=== PATIENT | male | born 1945 | race Two or more races ===

== ENCOUNTER → 2018-11-18 | Outpatient (CLI) | payer OTHER ==
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
--- NOTE | 2018-11-21 10:03 | RADRPT ---
PROCEDURE: XR knees CLINICAL INDICATION: Knee pain. TECHNIQUE: Three views of the bilateral knees were obtained. COMPARISON: None. FINDINGS: Right knee: There is no acute fracture dislocation. There postsurgical changes of total right knee a rthroplasty. Hardware appears intact. There is old deformity of the fibular neck. There is a small kn ee joint effusion. Left knee: There is no acute fracture dislocation. Osseous structures are intact. There are mild to moderate tricompartmental osteoarthritic changes of the knee, most notable at the medial tibio-femora l compartment. There is no knee joint effusion. IMPRESSION: 1. Postsurgical changes of total right knee arthroplasty without evidence of complication. 2. Mild to moderate left knee osteoarthritis, most notable at the medial tibio-femoral compartment. 3. Small right knee joint effusion. RPTAT:AAEE Physician Kavon Date Time Electronically viewed and signed by Physician Kavon on 11/21/2018 10:03 ELLY/
--- NOTE | 2018-11-22 11:33 | RADRPT ---
PROCEDURE: Bone length study CLINICAL INDICATION: Pain TECHNIQUE: Single composite frontal view of the lower extremities was submitted for review. The tib iotalar joints are not in full field of view. Study is submitted with ruler COMPARISON: Radiographs of the knees 11/18/2018 FINDINGS: Measuring from the top of the right femoral head to the right mid line tibial plafond, the mechanical axis lies at the lateral tibial tray compatible with genu valgus, measuring 105 cm using uncalibrate d line, and 97.5 cm. Measuring from the top of the left femoral head to the mid line tibial plafond, the mechanical axis l ies just medial to the medial tibial plafond and measures 108 cm with uncalibrated line, and using ru ler, measures approximately 100 cm. The pelvis is mildly tilted superiorly on the left. No displaced fracture identified. Right pubic symphysis, sacrum and visualized lower lumbar spine are obscured by overlying ruler and bowel gas. Marginal osteophyte formation in the bilateral hips witho ut significant cartilage space narrowing. Status post total right knee arthroplasty. Lucency about th e lateral tibial tray. Mild medial tibio-femoral compartment cartilage space narrowing of the left kn ee. Focal irregularity of the mid right tibia may be post-traumatic or surgical. IMPRESSION: 1. Leg length and mechanical axes as above. 2. Total right knee arthroplasty. 3. Degenerative changes as above. RPTAT: BBDD Physician Amalia Date Time Electronically viewed and signed by Physician Amalia on 11/22/2018 11:32 LYDIA/
== END | disposition home or self-care (01) ==
LOC: HKI 15:30
PROVIDERS: ATTEND Orthopaedic Surgery Adult Reconstructive Orthopaedic Surgery
DX: M25.561 Pain in right knee (principal); Z96.651 Presence of right artificial knee joint
CPT/HCPCS: 73562; 77073; Z7500; G0463

== ENCOUNTER → 2018-12-25 | Outpatient (CLI) | payer OTHER ==
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
== END | disposition home or self-care (01) ==
LOC: HKI 09:42
PROVIDERS: ATTEND Orthopaedic Surgery Adult Reconstructive Orthopaedic Surgery
DX: M25.561 Pain in right knee (principal); R22.41 Localized swelling, mass and lump, right lower limb
CPT/HCPCS: 20610; Z7500; Z7610; G0463

== ENCOUNTER 2019-02-18 05:26 | Inpatient (IN) | payer OTHER ==
[2019-02-18] VITALS (29 sets, daily range): BP systolic 71–130; BP diastolic 50–81; PULSE 65–104; RESP 13–18; Ht 172.7 cm; Wt 89.4 kg
[~2019-02-18] VITALS: Ht 172.7 cm; Wt 89.4 kg
[2019-02-18] MEDS: LACTATED RINGER'S 1,000 ML IV SCH ×4 (06:31→23:00)
[2019-02-18] MEDS ORDERED: ASPI81TA52 PO (06:59)
[2019-02-18] MEDS ORDERED: OXYC5CAP17 PO (06:59)
[2019-02-18] MEDS ORDERED: GABAPENTIN 300 MG CAP PO SCH (07:00)
[2019-02-18] MEDS ORDERED: CELECOXIB 200 MG CAP PO ONE (07:00)
[2019-02-18] MEDS ORDERED: ACETAMINOPHEN 1000MG/100ML IV 100 ML IVPB ONE (07:00)
[2019-02-18] MEDS ORDERED: CEFAZOLIN 2 GM/50 ML (PMX) 50 ML IVPB ONE (07:00)
[2019-02-18] MEDS ORDERED: METO10TA92 PO (07:00)
[2019-02-18] MEDS ORDERED: TRANEXAMIC ACID 1GM/100ML(PMX) 100 ML PRE-OP IVPB ONE (07:00)
[2019-02-18] MEDS ORDERED: LANSOPRAZOLE 30 MG CAP PO ONE (07:00)
[2019-02-18] MEDS ORDERED: GABA300C16 PO (07:00)
[2019-02-18] MEDS ORDERED: ONDANSETRON 4 MG INJ IV ONE (07:00)
[2019-02-18] MEDS ORDERED: TAMS-14 PO (07:01)
[2019-02-18] MEDS ORDERED: OMEP20CA16 PO (07:01)
[2019-02-18] MEDS ORDERED: OXYB5TAB7 PO (07:02)
--- NOTE | 2019-02-18 07:09 | HPN ---
Date/Time of Note Date/Time of Note DATE: 02/18/19 TIME: 07:08 Interval H&P Admission Note Pt. seen H&P reviewed: No system changes Patient denies fever, chills, shortness of breath, chest pain, nausea/vomiting, constipation, diarrhea, numbness, and tingling. MUSCULOSKELETAL: Right lower extremity Skin intact Sensation intact to light touch in a sural, saphenous, deep peroneal, superficial peroneal, medial and lateral plantar nerve distribution. Motor is intact, patient able to dorsiflex and plantarflex ankle and extend and flex great toe. Dorsalis Pedis pulse +2, Brisk capillary refill. Compartments are soft. Calves non-tender to palpation bilaterally. DULCE MARIA STROUD MD Feb 18, 2019 07:08
--- NOTE | 2019-02-18 07:16 | PREAC ---
Date/Time of Note Date/Time of Note DATE: 02/18/19 TIME: 07:14 Anesthesia Eval and Record Evaluation Time Pre-Procedure Interview DATE: 02/18/19 TIME: 07:14 Age 73 Sex male NPO: 8 hrs Preoperative diagnosis aseptic loosening right total knee arthroplasty Planned procedure revision right total knee arthroplasty Past Medical History Past Medical History: Includes Endo: Diabetes (preDSM) Renal: BPH GI: GERD, Obesity Surgery & Anesthesia Issues No known issue Meds Anticoagulation: No Beta Clive within 24 hr: No Reason Beta Clive not given: Pt. not on B-Clive Reported Medications Oxybutynin Chloride* (Ditropan*) 5 Mg Tab, 5 MG PO BID, TAB 02/18/19 Omeprazole* (Omeprazole*) 20 Mg Capsule.dr, 20 MG PO DAILY, #30 CAP 02/18/19 Tamsulosin Hcl* (Flomax*) 0.4 Mg Cap.er.24h, 0.4 MG PO DAILY, CAP 02/18/19 Metoclopramide* (Reglan*) 10 Mg Tablet, 10 MG PO AC MEALS, TAB 02/18/19 Gabapentin* (Gabapentin*) 300 Mg Capsule, 300 MG PO QHS, #60 CAP 02/18/19 Aspirin (Low Dose Aspirin) 81 Mg Tablet.dr, 81 MG PO BID, #30 TAB 02/18/19 Oxycodone Hcl* (IR) (Oxycodone Hcl*) 5 Mg Capsule, 5-10 MG PO Q6 PRN for PAIN, CAP 02/18/19 Current Medications Lactated Ringer's 1,000 ml @ 125 mls/hr Q8H IV Last administered on 02/18/19at 06:31; Admin Dose 125 MLS/HR; Start 02/18/19 at 07:00; Stop 02/18/19 at 23:59 Cefazolin Sodium/ Dextrose 50 ml @ 100 mls/hr PRE-OP ONCE IVPB ; Start 02/18/19 at 07:00; Stop 02/18/19 at 07:29 Tranexamic Acid 100 ml @ 200 mls/hr PRE-OP ONCE IVPB ; Start 02/18/19 at 07:00; Stop 02/18/19 at 07:29 Tranexamic Acid 100 ml @ 200 mls/hr AT CLOSING ONCE IVPB ; Start 02/18/19 at 07:00; Stop 02/18/19 at 07:29 Gabapentin (Neurontin) 300 mg ONCE PO Last administered on 02/18/19at 06:33; Admin Dose 300 MG; Start 02/18/19 at 07:00; Stop 02/18/19 at 23:59 Ropivacaine/ Clonidine/ Epinephrine/ Ketorolac Tromethamine/ Sodium Chloride INTRA-OP INJ ; Start 02/18/19 at 07:00; Stop 02/21/19 at 06:59 Meds reviewed: Yes Allergies Coded Allergies: No Known Allergy (Unverified , 02/17/19) Allergies Reviewed: Yes Labs/Studies Labs Reviewed: Reviewed by anesthesiologist Blood Bank Test 02/18/19 05:44 02/18/19 06:17 Blood Product Summary Counts Blood Type O POSITIVE test: N/A Studies: ECG (nl), CXR (mild copd) Pre-procedure Exam Last vitals Vital Signs Date Temp Pulse Resp B/P (MAP) Pulse Ox O2 O2 Flow FiO2 Time Delivery Rate 02/18/19 97.3 65 18 130/81 97 Room Air 06:44 (97) Airway: Adequate mouth opening, Adequate thyromental dist Mallampati: Mallampati II Teeth: Normal Lung: Normal Heart: Normal ASA Physical Status ASA physical status: 2 Emergency: None Planned Anesthetic General/MAC: ETT Neuraxial: Spinal Nerve block: Femoral (right) Planned Pain Management Sub-arachniod narcotics, Single shot nerve block, Parenteral pain med Pre-operative Attestations Prior to commencing anesthesia and surgery, the patient was re-evaluated, there was verification of: *The patient's identity *The results of appropriate recent lab work and preoperative vital signs *The above evaluation not changing prior to induction *Anesthetic plan, risk benefits, alternative and complications discussed with patient/family; questions answered; patient/family understands, accepts and wishes to proceed. Cayetano Cleveland M.D. Feb 18, 2019 07:16
[2019-02-18] MEDS ORDERED: TRANEXAMIC ACID 1GM/100ML(PMX) 200 ML ONE (07:20)
[2019-02-18] MEDS ORDERED: CEFAZOLIN 1 GM INJ ONE ×2 (07:30→07:34)
[2019-02-18] MEDS ORDERED: EPHEDrine 25 MG/5 ML SYG ONE (07:30)
[2019-02-18] MEDS ORDERED: SEVOFLURANE 15 MIN ONE (07:30)
[2019-02-18] MEDS ORDERED: ONDANSETRON 4 MG INJ ONE (07:34)
[2019-02-18] MEDS ORDERED: MIDAZOLAM 1 MG/ML 2 ML INJ ONE (07:34)
[2019-02-18] MEDS ORDERED: GLYCOPYRROLATE 0.4 MG INJ ONE (07:34)
[2019-02-18] MEDS ORDERED: DEXAMETHASONE 4 MG/ML 5 ML INJ ONE (07:34)
[2019-02-18] MEDS ORDERED: PROPOFOL 20 ML ONE (07:34)
[2019-02-18] MEDS ORDERED: NEOSTIGMINE 3 MG/3 ML SYRINGE ONE (07:34)
[2019-02-18] MEDS ORDERED: FENTAnyl 50 MCG/ML VIAL ONE (07:34)
[2019-02-18] MEDS ORDERED: ROCURONIUM 50 MG INJ ONE (07:34)
[2019-02-18] MEDS ORDERED: morphine SULFATE/PF (10 MG/10 ML) INJ ONE (07:36)
[2019-02-18] MEDS ORDERED: MIDAZOLAM 1 MG/ML 2 ML INJ IV PRN (08:30)
[2019-02-18] MEDS ORDERED: ONDANSETRON 4 MG INJ IV PRN ×2 (08:30)
[2019-02-18] MEDS ORDERED: OXYCODONE/ACETAMINOPHEN (5/325) TAB PO PRN ×2 (08:30)
[2019-02-18] MEDS ORDERED: HYDROmorphONE 1 MG/5 ML IV SYRINGE IV PRN ×3 (08:30)
[2019-02-18] MEDS ORDERED: NALBUPHINE HCL (10 MG/1 ML) INJ IV PRN (08:30)
[2019-02-18] MEDS ORDERED: MEPERIDINE 25 MG INJ IV PRN (08:30)
[2019-02-18] MEDS ORDERED: LABETALOL HCL 20MG INJ IV PRN (08:30)
[2019-02-18] MEDS ORDERED: EPHEDrine 25 MG/5 ML SYG IV PRN (08:30)
[2019-02-18] MEDS ORDERED: HYDROmorphONE 0.5 MG/0.5 ML SYG IV PRN ×2 (08:30)
[2019-02-18] MEDS ORDERED: FENTAnyl 50 MCG/ML VIAL IV PRN ×3 (08:30)
[2019-02-18] MEDS ORDERED: ALBUTEROL 0.083% (NEB) 2.5 MG/3 ML AMP HHN PRN (08:30)
[2019-02-18] MEDS ORDERED: hydrALAzine 20 MG INJ IV PRN (08:30)
[2019-02-18] MEDS ORDERED: DIPHENHYDRAMINE 50 MG INJ IV PRN ×3 (08:30→17:00)
[2019-02-18] MEDS ORDERED: TRIMETHOBENZAMIDE 100 MG/ML VIAL IM PRN ×2 (08:30)
[2019-02-18] MEDS ORDERED: NALOXONE (0.4 MG/ML) INJ IV PRN ×2 (08:30→17:00)
[2019-02-18] MEDS ORDERED: IPRATROPIUM (NEB) 0.5 MG/2.5 ML AMP HHN PRN (08:30)
[2019-02-18] MEDS ORDERED: TOBRAMYCIN 1.2 GM POWDER ZFS ONE (09:33)
[2019-02-18] MEDS ORDERED: VANCOMYCIN 1 GM INJ IVPB ONE ×2 (09:33)
[2019-02-18] MEDS ORDERED: ROPIVACAINE 0.5 % 30 ML VIAL ONE (12:05)
[2019-02-18] MEDS: TRANEXAMIC ACID 1GM/100ML(PMX) 100 ML AT CLOSING IVPB ONE ×2 (16:02)
--- NOTE | 2019-02-18 16:30 | PAC ---
Date/Time of Note Date/Time of Note DATE: 02/18/19 TIME: 16:30 Post-Anesthesia Notes Post-Anesthesia Note Last documented vital signs Vital Signs Date Temp Pulse Resp B/P (MAP) Pulse Ox O2 O2 Flow FiO2 Time Delivery Rate 02/18/19 97.3 65 18 130/81 97 Room Air 06:44 (97) Activity: WNL Respiratory function: WNL Cardiovascular function: WNL Mental status: Baseline Pain reasonably controlled: Yes Hydration appropriate: Yes Nausea/Vomiting absent: Yes Cayetano Cleveland M.D. Feb 18, 2019 16:30
[2019-02-18] MEDS ORDERED: DOCUSATE SODIUM 100 MG CAP PO ONE (17:00)
[2019-02-18] MEDS ORDERED: SENNA/DOCUSATE NA (8.6MG/50MG) TAB PO PRN (17:00)
[2019-02-18] MEDS ORDERED: BISACODYL 10 MG SUPP PR PRN (17:00)
[2019-02-18] MEDS ORDERED: HYDROmorphONE 1 MG/ML SYG IV PRN (17:00)
[2019-02-18] MEDS ORDERED: BETHANECHOL 25 MG TAB PO PRN (17:00)
[2019-02-18] MEDS ORDERED: NA PHOSPHATE/BIPHOS 133 ML ENEMA PR PRN (17:00)
[2019-02-18] MEDS ORDERED: MAGNESIUM HYDROXIDE 30ML CUP PO PRN (17:00)
[2019-02-18] MEDS ORDERED: NACL 0.9% 3 ML SYG IV SCH (17:00)
[2019-02-18] MEDS ORDERED: oxyCODONE 5 MG TAB PO PRN ×2 (17:00)
[2019-02-18] MEDS: CEFAZOLIN 2 GM/50 ML (PMX) 50 ML IVPB SCH (17:59)
--- NOTE | 2019-02-18 18:26 | CONS ---
Assessment/Plan Assessment/Plan Hospital Course (Demo Recall) Assessment and plan: 73-year-old male past because of BPH, GERD, prediabetes, who was brought in for a right total knee revision. #Status post right total knee revision: Again possible patellar tear, location during the operation which was repaired as well. -Continue postoperative care per primary orthopedic surgery team including pain control medications, fluids, labs, physical therapy # BPH: No present issues, monitor for now # GERD: Continue PPI # pre DM -monitor sugars, consider checking A1c We will continue to follow along with you. Consultation Date/Type/Reason Admit Date/Time Feb 18, 2019 at 05:26 Date/Time of Note DATE: 02/18/19 TIME: 18:26 Hx of Present Illness 73-year-old male past because of BPH, GERD, prediabetes, who was brought in for a right total knee revision. Apparently there was a possible patellar tendon laceration during the surgical operation which required repair as well. Patient presently is in recovery, denies any upper or lower GI bleeding, nausea vomiting, fever chills, chest pain, shortness of breath, diarrhea, constipation. Past Medical History Home Meds Reported Medications Oxybutynin Chloride* (Ditropan*) 5 Mg Tab, 5 MG PO BID, TAB 02/18/19 Omeprazole* (Omeprazole*) 20 Mg Capsule.dr, 20 MG PO DAILY, #30 CAP 02/18/19 Tamsulosin Hcl* (Flomax*) 0.4 Mg Cap.er.24h, 0.4 MG PO DAILY, CAP 02/18/19 Metoclopramide* (Reglan*) 10 Mg Tablet, 10 MG PO AC MEALS, TAB 02/18/19 Gabapentin* (Gabapentin*) 300 Mg Capsule, 300 MG PO QHS, #60 CAP 02/18/19 Aspirin (Low Dose Aspirin) 81 Mg Tablet.dr, 81 MG PO BID, #30 TAB 02/18/19 Oxycodone Hcl* (IR) (Oxycodone Hcl*) 5 Mg Capsule, 5-10 MG PO Q6 PRN for PAIN, CAP 02/18/19 Medications Current Medications Lactated Ringer's 1,000 ml @ 125 mls/hr Q8H IV Last administered on 02/18/19at 06:31; Admin Dose 125 MLS/HR; Start 02/18/19 at 07:00; Stop 02/18/19 at 23:59 Gabapentin (Neurontin) 300 mg ONCE PO Last administered on 02/18/19at 06:33; Admin Dose 300 MG; Start 02/18/19 at 07:00; Stop 02/18/19 at 23:59 Ropivacaine/ Clonidine/ Epinephrine/ Ketorolac Tromethamine/ Sodium Chloride INTRA-OP INJ Last administered on 02/18/19at 09:33; Admin Dose 112.3 ML; Start 02/18/19 at 07:00; Stop 02/21/19 at 06:59 Hydromorphone HCl (Dilaudid) 0.2 mg Q2H PRN IV .PAIN 1-5; Start 02/18/19 at 08:30; Stop 02/19/19 at 07:42 Hydromorphone HCl (Dilaudid) 0.4 mg Q2H PRN IV .PAIN 6-10; Start 02/18/19 at 08:30; Stop 02/19/19 at 07:42 Diphenhydramine HCl (Benadryl) 25 mg Q4H PRN IV .PRURITUS; Start 02/18/19 at 08:30; Stop 02/19/19 at 07:42 Nalbuphine HCl (Nubain) 10 mg Q4H PRN IV .PRURITUS; Start 02/18/19 at 08:30; Stop 02/19/19 at 07:42 Ondansetron HCl (Zofran Inj) 4 mg Q6H PRN IV .NAUSEA/VOMITING; Start 02/18/19 at 08:30; Stop 02/19/19 at 07:42 Trimethobenzamide HCl (Tigan) 200 mg Q6H PRN IM .NAUSEA/VOMITING; Start 02/18/19 at 08:30; Stop 02/19/19 at 07:42 Naloxone HCl (Narcan) 0.2 mg Q2M PRN IV .RESP RATE; Start 02/18/19 at 08:30; Stop 02/19/19 at 07:42 Miscellaneous Information (* Miscellaneous Pharmacy Order) DURAMORPH: 0.1 MG SPI... GIVEN NEURAXIAL XX ; Start 02/18/19 at 08:30 Lactated Ringer's 1,000 ml @ 80 mls/hr [id number] IV ; Start 02/18/19 at 18:30 IV Flush (NS 3 ml) 3 ml PER PROTOCOL IV ; Start 02/18/19 at 17:00 Oxycodone HCl (Roxicodone) 15 mg Q4H PRN PO .PAIN; Start 02/18/19 at 17:00 Oxycodone HCl (Roxicodone) 10 mg Q4H PRN PO .PAIN; Start 02/18/19 at 17:00 Oxycodone HCl (Roxicodone) 5 mg Q4H PRN PO .PAIN; Start 02/18/19 at 17:00 Hydromorphone HCl (Dilaudid) 1 mg Q3H PRN IV .BREAKTHROUGH PAIN; Start 02/18/19 at 17:00 Acetaminophen (Tylenol Tab) 1,000 mg Q8 PO ; Start 02/18/19 at 22:00 Ondansetron HCl (Zofran Inj) 4 mg Q4H PRN IV NAUSEA/VOMITING; Start 02/19/19 at 17:00 Cefazolin Sodium/ Dextrose 50 ml @ 100 mls/hr Q8H IVPB Last administered on 02/18/19at 17:59; Admin Dose 100 MLS/HR; Start 02/18/19 at 17:00; Stop 02/19/19 at 09:29 Gabapentin (Neurontin) 300 mg QHS PO ; Start 02/18/19 at 21:00 Pantoprazole (Protonix Tab) 40 mg DAILY@06 PO ; Start 02/20/19 at 06:00 Docusate Sodium (Colace) 200 mg BID PO ; Start 02/19/19 at 09:00; Stop 02/22/19 at 08:59 Simethicone (Mylicon) 80 mg TID PRN PO .GAS; Start 02/18/19 at 17:00 Senna/Docusate Sodium (Senokot-S) 2 tab BID PRN PO .CONSTIPATION; Start 02/18/19 at 17:00 Magnesium Hydroxide (Milk Of Mag) 30 ml HS PRN PO .CONSTIPATION; Start 02/18/19 at 17:00 Bisacodyl (Dulcolax Supp) 10 mg DAILY PRN IL .CONSTIPATION; Start 02/18/19 at 17:00 Sodium Biphosphate/ Sodium Phosphate (Fleet Enema) 133 ml DAILY PRN IL .CONSTIPATION; Start 02/18/19 at 17:00 Diphenhydramine HCl (Benadryl) 25 mg Q4H PRN IV .ITCHING; Start 02/18/19 at 17:00 Naloxone HCl (Narcan) 0.2 mg Q2M PRN IV .RESP RATE; Start 02/18/19 at 17:00 Bethanechol Chloride (Urecholine) 25 mg URINARY CATH D/C PRN PO UNABLE TO VOID; Start 02/18/19 at 17:00 Aspirin (Halfprin) 81 mg BID PO ; Start 02/19/19 at 09:00 Allergies: Coded Allergies: No Known Allergy (Unverified , 02/17/19) Social History Alcohol Use: none Smoking Status: Never smoker Drug Use: none Exam/Review of Systems Exam Vitals Vital Signs Date Temp Pulse Resp B/P (MAP) Pulse Ox O2 O2 Flow FiO2 Time Delivery Rate 02/18/19 100.0 18:11 02/18/19 86 14 118/66 100 Nasal 2.0 18:07 (83) Cannula Exam General: Lying in bed, no acute distress Head: Normocephalic, atraumatic. Eyes: Pupils equally reactive, EOM intact Neck: Supple, no lymphadenopathy Respiratory: Clear to oscillation bilaterally Cardiovascular: S1, S2 heard, no rubs or gallops Abdominal: Soft, non-tender, non-distended, no peritoneal sign MSK: Decreased range of motion right lower extremity Neurologic: no focal deficits Results Results 24hrs Laboratory Tests Test 02/18/19 08:46 Pathologist Review (Hematology) NO Synovial Fluid Source RIGHT KNEE Synovial Fluid Color RED Synovial Fluid Appearance BLOODY Synovial Fluid Volume 10.5 H Synovial Fluid WBC 1228 H Synovial Fluid Polynuclear WBCs % 26.1 H Synovial Fluid Mononuclear WBCs % 73.9 Synovial Fluid Crystals NO CRYSTALS SEEN Medications Medication Current Medications Lactated Ringer's 1,000 ml @ 125 mls/hr Q8H IV Last administered on 02/18/19at 06:31; Admin Dose 125 MLS/HR; Start 02/18/19 at 07:00; Stop 02/18/19 at 23:59 Gabapentin (Neurontin) 300 mg ONCE PO Last administered on 02/18/19at 06:33; Admin Dose 300 MG; Start 02/18/19 at 07:00; Stop 02/18/19 at 23:59 Ropivacaine/ Clonidine/ Epinephrine/ Ketorolac Tromethamine/ Sodium Chloride INTRA-OP INJ Last administered on 02/18/19at 09:33; Admin Dose 112.3 ML; Start 02/18/19 at 07:00; Stop 02/21/19 at 06:59 Hydromorphone HCl (Dilaudid) 0.2 mg Q2H PRN IV .PAIN 1-5; Start 02/18/19 at 08:30; Stop 02/19/19 at 07:42 Hydromorphone HCl (Dilaudid) 0.4 mg Q2H PRN IV .PAIN 6-10; Start 02/18/19 at 08:30; Stop 02/19/19 at 07:42 Diphenhydramine HCl (Benadryl) 25 mg Q4H PRN IV .PRURITUS; Start 02/18/19 at 08:30; Stop 02/19/19 at 07:42 Nalbuphine HCl (Nubain) 10 mg Q4H PRN IV .PRURITUS; Start 02/18/19 at 08:30; Stop 02/19/19 at 07:42 Ondansetron HCl (Zofran Inj) 4 mg Q6H PRN IV .NAUSEA/VOMITING; Start 02/18/19 at 08:30; Stop 02/19/19 at 07:42 Trimethobenzamide HCl (Tigan) 200 mg Q6H PRN IM .NAUSEA/VOMITING; Start 02/18/19 at 08:30; Stop 02/19/19 at 07:42 Naloxone HCl (Narcan) 0.2 mg Q2M PRN IV .RESP RATE; Start 02/18/19 at 08:30; Stop 02/19/19 at 07:42 Miscellaneous Information (* Miscellaneous Pharmacy Order) DURAMORPH: 0.1 MG SPI... GIVEN NEURAXIAL XX ; Start 02/18/19 at 08:30 Lactated Ringer's 1,000 ml @ 80 mls/hr [id number] IV ; Start 02/18/19 at 18:30 IV Flush (NS 3 ml) 3 ml PER PROTOCOL IV ; Start 02/18/19 at 17:00 Oxycodone HCl (Roxicodone) 15 mg Q4H PRN PO .PAIN; Start 02/18/19 at 17:00 Oxycodone HCl (Roxicodone) 10 mg Q4H PRN PO .PAIN; Start 02/18/19 at 17:00 Oxycodone HCl (Roxicodone) 5 mg Q4H PRN PO .PAIN; Start 02/18/19 at 17:00 Hydromorphone HCl (Dilaudid) 1 mg Q3H PRN IV .BREAKTHROUGH PAIN; Start 02/18/19 at 17:00 Acetaminophen (Tylenol Tab) 1,000 mg Q8 PO ; Start 02/18/19 at 22:00 Ondansetron HCl (Zofran Inj) 4 mg Q4H PRN IV NAUSEA/VOMITING; Start 02/19/19 at 17:00 Cefazolin Sodium/ Dextrose 50 ml @ 100 mls/hr Q8H IVPB Last administered on 02/18/19at 17:59; Admin Dose 100 MLS/HR; Start 02/18/19 at 17:00; Stop 02/19/19 at 09:29 Gabapentin (Neurontin) 300 mg QHS PO ; Start 02/18/19 at 21:00 Pantoprazole (Protonix Tab) 40 mg DAILY@06 PO ; Start 02/20/19 at 06:00 Docusate Sodium (Colace) 200 mg BID PO ; Start 02/19/19 at 09:00; Stop 02/22/19 at 08:59 Simethicone (Mylicon) 80 mg TID PRN PO .GAS; Start 02/18/19 at 17:00 Senna/Docusate Sodium (Senokot-S) 2 tab BID PRN PO .CONSTIPATION; Start 02/18/19 at 17:00 Magnesium Hydroxide (Milk Of Mag) 30 ml HS PRN PO .CONSTIPATION; Start 02/18/19 at 17:00 Bisacodyl (Dulcolax Supp) 10 mg DAILY PRN IL .CONSTIPATION; Start 02/18/19 at 17:00 Sodium Biphosphate/ Sodium Phosphate (Fleet Enema) 133 ml DAILY PRN IL .CONSTIPATION; Start 02/18/19 at 17:00 Diphenhydramine HCl (Benadryl) 25 mg Q4H PRN IV .ITCHING; Start 02/18/19 at 17:00 Naloxone HCl (Narcan) 0.2 mg Q2M PRN IV .RESP RATE; Start 02/18/19 at 17:00 Bethanechol Chloride (Urecholine) 25 mg URINARY CATH D/C PRN PO UNABLE TO VOID; Start 02/18/19 at 17:00 Aspirin (Halfprin) 81 mg BID PO ; Start 02/19/19 at 09:00 JAQUAN MCINTYRE Feb 18, 2019 18:26
[2019-02-18] MEDS: GABAPENTIN 300 MG CAP PO SCH (21:34)
[2019-02-18] MEDS: ACETAMINOPHEN 500 MG TAB PO SCH (21:34)
--- NOTE | 2019-02-18 22:14 | OPR ---
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 Use of intraoperative x-ray Primary repair of patellar tendon Negative pressure dressing Surgeon see signature line Practice Management Consultant NIKOLAS Mcclure Anesthesia Type: general, spinal Tourniquet Time: About 110 minutes broken up into multiple times. Estimated Blood Loss: 250 - 300 ml's Transfusion none Specimen 3 frozen sections for WBC under high-powered field: Synovium, tibia, femur. Synovial fluid: Cell count with differential, aerobic, anaerobic, fungal, AFB cultures 5 tissue cultures for aerobic, anaerobic, fungal, AFB: Synovium, superficial tibia, superficial femur, femoral canal, tibial canal. 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 SURGICAL PROCEDURE: Explantation of right total knee arthroplasty and revision right total knee arthroplasty modifier 22 for increased effort and time secondary to difficult exposure from multiple previous surgeries with multiple incisions, severe bone loss, ligamentous instability. Use of intraoperative x-ray Primary repair of patellar tendon Negative pressure dressing INDICATIONS AND CONSENT: The patient is a 73 year-old man, with an orthopaedic history of a trauma to the right lower extremity many years ago requiring external fixation of the tibia. He then underwent a right total knee arthroplasty at least 10 years ago in [facility]. About a year and 1/2 to 2 years ago he began to have significant pain and difficulty walking. He had severe swelling. This progressed to the point where he was on a cane and walker and unable to work. He presented to my clinic and was worked up for infection which was negative including aspiration cultures and alpha defensin. Imaging showed that he had loosening of both the tibial and femoral components. They appear to be malpositioned with an oversized femoral component. On physical examination range of motion was significantly limited with flexion contracture as well as inability to flex past 60 degrees. There was a large effusion. There is no erythema. There was warmth to the knee. There is multiple well-healed scars over the anterior and lateral aspect of the knee. There is malrotation of the lower leg. Preoperative work-up demonstrated that the tibia was anatomically aligned in both the AP and lateral planes. No significant venous stasis or edema. Distally neurovascular intact. After long discussion with the patient and his family I recommended a revision total knee arthroplasty. I did discuss with them at length that even though the infection work-up was negative there was still a possibility of intraoperative signs of an infection or even after the revision surgery cultures becoming positive. Indicates that there was strong suspicion for infection intraoperatively and antibiotic spacer would be placed. They understood this. The operative procedure was explained using diagrams and or three-dimensional models. The rehabilitation, the potential risks, benefits and alternatives were discussed at length. Specific risks discussed included but were not limited to excessive blood loss and the need for transfusion and therefore the risk of transmissible disease or transfusion reaction, deep infection and the potential need for repetitive debridements, implant removal, long-term antibiotic therapy, possibly requiring deep venous access, extensor mechanism complications, including subluxation or dislocation, disruption of the quadriceps or patellar tendon, fracture of the patella or avulsion of the tibial tuberosity, femoral, tibial or fibular fracture and the need for further surgery for fixation, neurovascular injury with temporary or permanent numbness, tingling, weakness or paralysis, arterial injury requiring surgery including possible amputation, deep venous thrombosis, pulmonary embolism and , persistent pain, weakness, or limp, late aseptic loosening and the need for revision, polyethylene wear- induced osteolysis and related problems, post-operative stiffness requiring closed manipulation, and finally, a wide variety of unanticipated medical problems. The opportunity to ask questions and address any concerns was provided. The patient elected to proceed with TKA. FINDINGS: Grossly loose femoral and tibial components. Severe malpositioning of femoral and tibial components. Femoral component was oversized and in various. Tibial component was in significant internal rotation. Previous tibia was not completely resected with large posterior portion of the tibia at the regional joint line. Severe scarring of the patellar tendon. Severe patella [place]. There is no gross signs of infection. 3 frozen sections sent to 4 WBCs on high- power field returned with under 5 WBCs per high-powered field. Synovial fluid WBCs were 1246. SURGERY IN DETAIL: Patient was taken into the Operating Room, placed supine on the operating table. Preoperatively, they were given weight-based dosing of Ancef and if MRSA positive vancomycin was given in addition. Tourniquet was placed to the right proximal thigh. Regional anesthesia was administered by Anesthesia Department. Right lower extremity was prepped and draped in sterile fashion. Surgical pause was performed, correctly identifying the patient's name, medical record number, diagnoses, surgical procedure, and laterality of procedure. The leg was elevated, exsanguinated with an Esmarch, tourniquet was inflated to 250 mmHg, remained inflated for 110 minutes which was divided into 2 separate sessions, after which it was deflated. The previous incision used for the total knee was lateral to the tibial tubercle utilizing a previous incision for an old trauma. It appeared that the previous total knee arthroplasty may have been done through a lateral parapatellar approach. An anterior curvilinear incision was made utilizing the previous scar approximately however diverging at approximately a 45 to 60 degree angle distal to the patella in order to make the incision medial to the tibial tubercle. Skin and subcutaneous tissue sharply dissected down the Darby's fascia superiorly, which was incised in line with skin incision. There was significant scarring full-thickness medial and lateral flaps were created. The patella tendon was identified. It was extremely immobile and shortened. The quadriceps tendon, medial patellar retinaculum, patellar tendon were visualized. Synovial fluid was aspirated before the medial parapatellar arthrotomy. This fluid was sent for cell count differential and cultures for aerobic, anaerobic, fungal, AFB. The synovial fluid was blood-tinged. A medial parapatellar arthrotomy was performed. The medial and lateral gutters were very thick. The synovium was inflamed. There was poly-nodular synovium consistent with poly-wear. The pr oximal medial tibia was subperiosteally exposed for a distance of 4 cm from joint line. Care was taken to release the patella tendon from the anterior tibia. However the current level of the tibial cut was just above the tibial tubercle. Again the patella tendon was stiff and immobile and shortening. At this time synovium was sent for frozen section as well as culture. Care was taken to debride and debulk the medial and lateral gutters. This significantly helped to mobilization. The tibial poly-insert was removed with an osteotome. At this time the attention turned towards explanting the femoral and tibial component. The knee was carefully flexed with the patella subluxated laterally. The femur was grossly loose. It was oversized. And in extension. It was also in slight varus. To ensure no additional bone loss a microsagittal saw was taken to the bone cement interface of the femoral component. A retrograde shuttle bus driver was used to explant the femur which came off easily with no bone loss on the femur itself. However at this time it was noticed there was severe bone loss of the medial and lateral femoral condyles as well as the posterior condyles. This was not previously appreciated on x-ray as this was being obscured by the metal prosthesis. The bone was soft. Secondary to the femoral component being grossly loose there was thick amount of fibrous tissue between the femoral component and the bone. This was debrided. At times the fibrous tissue was at least 1 cm to even 2 cm thick. Superficial pseudomembrane from the tibia was sent for frozen section and culture. At this time attention turned towards the tibia. The tibia significantly subsided and was deep to the anterior aspect of the tibia. Soft tissue around the tibial plateau was debrided. This was followed by careful debridement of bone to visualize the implant cement bone interface. The tibia was in significant internal rotation and this was not a mobile-bearing implant. At this time a microsagittal saw was used to disrupt the bone cement interface. Care was taken to protect the patella tendon. Retrograde shuttle bus driver was then used to elevate the tibial component from the bone. This came off with no additional bone loss on the tibial component itself. At this time it was noticed that there was a significant amount of posterior tibia that was not resected at the original surgery. This was about 1-1/2 cm in height. Fibrous pseudomembrane of the superficial tibia was sent for frozen as well as culture. At this time preparation of the tibia began. After removal of all cement from the tibial plateau as well as the heel from the tibial implant and intramedullary guide was used to open up the canal. Culture from the canal was sent. This time reamers for the tibial stem were sequentially placed within the intramedullary canal under hand. A size 14 mm reamer had very good isthmic fit and gave a very good alignment in both the coronal and sagittal planes. At this time a broach with appropriately sized stem was then used to prepare the tibia for the sleeve. The broach was increased size sequentially until a good fit was obtained. Alignment was good in both coronal and sagittal plane. Once the broach was at the appropriate level a small sagittal saw was used to recut the tibia so it was a neutral mechanical axis and had a 2 degree posterior slope. Again care was taken to protect the patellar tendon. After preparing the medial tibial plateau attention was turned towards the lateral tibial plateau. The patella tendon was very mobile and was mobilized as much as could be without performing a tibial tubercle osteotomy. The small sagittal saw was carefully placed beyond the patella tendon. However unfortunately when this saw was used the sagittal motion of the shaft of the saw did abut the patella tendon and cause a partial laceration. Under careful inspection this was approximately 50% of the patellar tendon. This was at the level of the tibial cut. In this particular patient this was directly proximal to the tibial tubercle. The patella tendon was too short to use suture anchors for the proximal and into the tibial tubercle. Therefore was decided this time to perform a primary repair using FiberWire in a Krakw stitch. The knee was now placed in full extension. Two #2 FiberWire's were used and placed in a running Krakw's stitch. This was a 4 suture technique with 2 sutures exiting each end of the patellar tendon. The Krakw stitch for the distal end of the patellar tendon was also placed through bone tunnel the tibial tuberosity to increase the strength of the repair. The fiber wires were tied with multiple square knots. The repair was very strong. There was no gapping of the patellar tendon. The knee was flexed past 90 degrees with no signs of gapping or failure. A 0 Vicryl was used to reinforce the repair with a pants over vest technique. After this proceeded with the remainder of the surgery with extreme care to the patellar tendon. The tibia was then sized to be 2.5. Trial components with the appropriately sized sleeve and tibial baseplate and stem were implanted. At this time attention turned towards the femur. Further debridement of the femur was ne cessary as there is significant fibrous tissue still surrounding the femur. As noted before there was severe loss of medial and lateral condyles on the distal and posterior aspects. The remainder of the medial condyle was a shell. The lateral femoral condyle was extremely thin as well and soft osteoporotic bone. At this time the intramedullary canal was opened. Cultures were sent. The canal was copiously irrigated and sequentially reamed until good fit was obtained. The reamer was left in place the distal femoral cutting block was placed over the reamer. The distal femur cuts were freshened. At this time was estimated there was at least 4 mm of loss on the medial side to at least 8 mm of loss on the lateral side. At this time the MCL was palpated. The MCL itself could not be felt in isolation however there was significant scar in the medial aspect of the knee that appeared to become taut and stable with distraction. At this time the 4-in-1 cutting block shifted posteriorly 2 mm was placed over the reamer. A spacer block was used to gap balance the knee appropriately for rotation. The formal cutting block was pinned in place. Posterior early there was 12 mm of bone loss. Anterior cut made no contact with bone. Minimal posterior and anterior chamfer. At this time the femur was prepared for the sleeve with the appropriate reamer and broaches. Broaches were originally pl aced the depth for a TC3. The appropriately sized femur was trialed with the trial sleeve and stem. An 18 mm poly-was placed. The patella tracked well. The patella tendon repair at this time is noticed to become slightly lax but remained intact. The knee had excellent motion however the MCL did not appear to be competent. On further distraction the medial side continue to gap. It was felt at this time that the MCL was not in good condition and given the severe bone loss was partially or completely detached. The taut tissue felt prior was likely scar and fibrous tissue. Prior to explanting the trials intraoperative x-ray was obtained to verify alignment. Intraoperative x-ray verified very good alignment of the components. It was noted that the femur needed to be distalized on the x-ray as the joint line was slightly elevated. It was decided at this time to convert the TC3 to an S-ROM hinged knee. Femoral trial components were removed. The posterior condyle and posterior chamfer cuts were redone with the S-ROM hinged cutting block. Rotation was obtained using gap balancing technique with spacer blocks. At this time it was decided to increase the size of the broach in order to place it at the appropriate depth for an S-ROM hinged knee. The broach had excellent stability in the femoral metaphysis. Additional posterior condyle on the medial side was cut freehand to increase external rotation and in order to improve patella tracking. An extra small femoral component was trialed with the appropriate sleeve and stem. This was trialed with an 18 mm insert. This time ultra components were removed. The knee was copiously irrigated with 3 L of normal saline with pulse lavage. Any free tissue of fibrous tissue along the surface of the femur tibia were debrided as well. A small drill bit was used to increase porosity of sclerotic bone of the tibia plateau. Stimulant bullets were placed in the femoral and tibial canal using the appropriate introducer. A 10 mm distal augment was cemented onto the extra small femoral implant. The knee was dried. Cement was placed on top of the tibial plateau. The tibia with the sleeve and stem were then implanted and impacted. Excess cement was removed. Cement was placed along the femur and the femoral component with the sleeve and stem were implanted and impacted. Excess cement was removed. An 18 mm insert was placed. Compression was achieved. The patella button had some signs of minor wear however it was otherwise well fixed. Therefore was decided not to revise the patellar button especially given the difficulty with the patella tendon. Once the cement hardened the knee was trialed. It was decided to trial a 21 mm insert. This worked very well. Therefore a formal rotating platform hinged 21 mm insert was implanted. The pin for the hinge was locked in place. At this time the knee was able to fully extend and had a recurvatum of just a few degrees. The knee could flex to about 120 degrees without the patella tendon repair without gapping any further. The knee was obviously stable in the coronal plane given that this was a hinged knee. The patella tracked well. At this time it was decided to reinforce the repair of the patellar tendon given that he did become lax throughout surgery. An additional #2 FiberWire was used in a Krakw fashion. The patella tendon repair was very tight. At this time the knee was ranged. The knee could be brought to about 110 degrees without overly stressing the repair. However given the additional tightness the patella tendon the patella was not tracking as well. Therefore was decided to perform a lateral release. The patella tracking significantly improved. Hemostasis was obtained. Pulse lavage was used to irrigate and remove any loose debris from posterior knee. Stimulan beads were placed within the knee. A medium Hemovac drain was placed exiting superior lateral. The arthrotomy was closed with 1 PDS in a [id number], interrupted fashion, subcutaneous tissues irrigated, closed with 2-0 Vicryl in an inverted, interrupted fashion. The skin was closed with luis. Negative pressure Caron dressing was placed. The patient was placed in a knee immobilizer. Sponge, needle and instrument counts were correct at the end of the case. DISPOSITION: Patient transferred to PACU in stable condition. The patient will be weight bearing as tolerated on the operative extremity, however the patient will be in a knee immobilizer with no allowed flexion for some period of time. I will further advise the patient on the protocol that I will implement for his range of motion and physical therapy in order to allow the patella tendon to heal and to prevent stiffness.. PT will begin POD #0 if available. Postoperative AP and lateral of the operative knee will be ordered in PACU. Bilateral knee high SCDs will be worn while admitted. ASA 81mg BID will be given for DVT prophylaxis for 6 weeks. Pain will be controlled with medication. The patient will follow up in clinic in approximately 2 weeks. ESTIMATED BLOOD LOSS: 300 mL. CULTURES: Synovial fluid, synovial tissue, superficial tibia, superficial femur, femoral canal, and tibial canal. All sent for aerobic, anaerobic, fungal and AFB. PATHOLOGY: Synovium Bone. IMPLANTS: Depuy S-ROM Hinged TKA Femur: size X-Small S-ROM 10mm distal augment 46mm femoral sleeve fully porous coated [id number] femoral pres fit sleeve Tibia: Size 2.5 MBT revision Tibia 37mm MBT Sleeve -partially porous coated 115x16 tibial pres fit Stem Poly insert: size X-Small 21mm hinge Patella: not revised DULCE MARIA STROUD MD Feb 18, 2019 22:14
[2019-02-19 00:29] VITALS: BP 94/55; PULSE 72; RESP 18
[2019-02-19] MEDS: CEFAZOLIN 2 GM/50 ML (PMX) 50 ML IVPB SCH ×2 (00:35→08:47)
[2019-02-19] MEDS: ACETAMINOPHEN 500 MG TAB PO SCH ×3 (06:53→22:03)
[2019-02-19] MEDS: LACTATED RINGER'S 1,000 ML IV SCH ×2 (07:00→19:30)
[2019-02-19 07:49] VITALS: BP 110/59; PULSE 66; RESP 16
--- NOTE | 2019-02-19 07:53 | PN ---
Date/Time of Note Date/Time of Note DATE: 02/19/19 TIME: 07:51 Assessment/Plan Lines/Catheters IV Catheter Type (from Nrsg): Peripheral IV Huston in Place (from Nrsg): Yes Assessment/Plan Chief Complaint/Hosp Course POD#1 s/p complex revision right TKA. Intraoperative iatrogenic injury to the patella tendon status post primary repair. Patient is in a knee immobilizer. At this time he must keep his knee in extension and the knee immobilizer in place at all times. If knee immobilizer needs to remove for hygiene or dressing changes his knee must be kept in extension. No active extension of the knee. Patient is weightbearing as tolerated with knee locked in extension. A postop hinged brace will be ordered. Intraoperative cultures are pending and will continue to be followed -Post op H&H stable -PT/OT -Joints pain control protocol -DVT prophylaxis: SCD's, ASA 81 mg twice daily x6 weeks -Weight bearing status: as tolerated -Post-op XR ordered -Abx: 24h vanc/ancef -Diet: ADAT -[place]: Discontinued -Discharge planning consult Planned Discharge Date: Tomorrow versus 02/21/2019 Discharge to home with home health and home physical therapy Subjective 24 Hr Interval Summary Patient doing well No acute events overnight Pain is well controlled Exam/Review of Systems Vital Signs Vitals Vital Signs Date Temp Pulse Resp B/P (MAP) Pulse Ox O2 O2 Flow FiO2 Time Delivery Rate 02/19/19 98.2 66 16 110/59 100 Nasal 07:49 (76) Cannula 02/19/19 2.0 00:29 Intake and Output 02/18/19 02/18/19 02/19/19 1515:00 23:00 07:00 IntakeIntake Total 100 ml 2500 ml 910 ml OutputOutput Total 1355 ml 930 ml BalanceBalance 100 ml 1145 ml -20 ml Exam Free Text/Dictation Right lower extremity: Dressing: clean, dry, and intact, no erythema Incisional wound VAC holding suction Knee immobilizer in place Sensation intact to light touch in a sural, saphenous, deep peroneal, superficial peroneal, medial and lateral plantar nerve distribution. Motor is intact, patient able to dorsiflex and plantarflex ankle and extend and flex great toe. Posterior tibialis pulse +2, Brisk capillary refill. Compartments are soft. Calves non-tender to palpation bilaterally. Results Result Diagram: 02/19/19 0445 02/19/19 0445 DULCE MARIA STROUD MD Feb 19, 2019 07:53
[2019-02-19] MEDS: DOCUSATE SODIUM 100 MG CAP PO SCH ×2 (08:46→22:02)
[2019-02-19] MEDS: ASPIRIN (EC) 81 MG TAB PO SCH ×2 (08:46→22:15)
[2019-02-19] MEDS ORDERED: DEXTROSE 50% 50 ML SYRINGE IV PRN ×2 (13:00)
[2019-02-19] MEDS ORDERED: GLUCOSE GEL 15 GRAM TUBE BUCCAL PRN (13:00)
[2019-02-19] MEDS ORDERED: GLUCAGON 1 MG INJ IM PRN (13:00)
[2019-02-19] MEDS ORDERED: GLUCOSE GEL 15 GRAM TUBE PO PRN ×2 (13:00)
--- NOTE | 2019-02-19 13:46 | PN ---
Date/Time of Note Date/Time of Note DATE: 02/19/19 TIME: 13:46 Objective Vitals Vital Signs Date Temp Pulse Resp B/P (MAP) Pulse Ox O2 O2 Flow FiO2 Time Delivery Rate 02/19/19 98.2 66 16 110/59 100 Nasal 07:49 (76) Cannula 02/19/19 2.0 00:29 Intake and Output 02/18/19 02/18/19 02/19/19 1515:00 23:00 07:00 IntakeIntake Total 100 ml 2500 ml 910 ml OutputOutput Total 1355 ml 930 ml BalanceBalance 100 ml 1145 ml -20 ml Results Result Diagram: 02/19/19 0445 02/19/19 0445 Medications Medications Current Medications Ropivacaine/ Clonidine/ Epinephrine/ Ketorolac Tromethamine/ Sodium Chloride INTRA-OP INJ Last administered on 02/18/19at 09:33; Admin Dose 112.3 ML; Start 02/18/19 at 07:00; Stop 02/21/19 at 06:59 Miscellaneous Information (* Miscellaneous Pharmacy Order) DURAMORPH: 0.1 MG SPI... GIVEN NEURAXIAL XX ; Start 02/18/19 at 08:30 Lactated Ringer's 1,000 ml @ 80 mls/hr [id number] IV Last administered on 02/18/19at 21:41; Admin Dose 80 MLS/HR; Start 02/18/19 at 18:30 IV Flush (NS 3 ml) 3 ml PER PROTOCOL IV ; Start 02/18/19 at 17:00 Oxycodone HCl (Roxicodone) 15 mg Q4H PRN PO .PAIN; Start 02/18/19 at 17:00 Oxycodone HCl (Roxicodone) 10 mg Q4H PRN PO .PAIN; Start 02/18/19 at 17:00 Oxycodone HCl (Roxicodone) 5 mg Q4H PRN PO .PAIN; Start 02/18/19 at 17:00 Hydromorphone HCl (Dilaudid) 1 mg Q3H PRN IV .BREAKTHROUGH PAIN; Start 02/18/19 at 17:00 Acetaminophen (Tylenol Tab) 1,000 mg Q8 PO Last administered on 02/19/19at 13:22; Admin Dose 1,000 MG; Start 02/18/19 at 22:00 Ondansetron HCl (Zofran Inj) 4 mg Q4H PRN IV NAUSEA/VOMITING; Start 02/19/19 at 17:00 Gabapentin (Neurontin) 300 mg QHS PO Last administered on 02/18/19at 21:34; Admin Dose 300 MG; Start 02/18/19 at 21:00 Pantoprazole (Protonix Tab) 40 mg DAILY@06 PO ; Start 02/20/19 at 06:00 Docusate Sodium (Colace) 200 mg BID PO Last administered on 02/19/19at 08:46; Admin Dose 200 MG; Start 02/19/19 at 09:00; Stop 02/22/19 at 08:59 Simethicone (Mylicon) 80 mg TID PRN PO .GAS; Start 02/18/19 at 17:00 Senna/Docusate Sodium (Senokot-S) 2 tab BID PRN PO .CONSTIPATION; Start 02/18/19 at 17:00 Magnesium Hydroxide (Milk Of Mag) 30 ml HS PRN PO .CONSTIPATION; Start 02/18/19 at 17:00 Bisacodyl (Dulcolax Supp) 10 mg DAILY PRN [place] .CONSTIPATION; Start 02/18/19 at 17:00 Sodium Biphosphate/ Sodium Phosphate (Fleet Enema) 133 ml DAILY PRN [place] .CONSTIPATION; Start 02/18/19 at 17:00 Diphenhydramine HCl (Benadryl) 25 mg Q4H PRN IV .ITCHING; Start 02/18/19 at 17:00 Naloxone HCl (Narcan) 0.2 mg Q2M PRN IV .RESP RATE; Start 02/18/19 at 17:00 Bethanechol Chloride (Urecholine) 25 mg URINARY CATH D/C PRN PO UNABLE TO VOID Last administered on 02/19/19at 13:22; Admin Dose 25 MG; Start 02/18/19 at 17:00 Aspirin (Halfprin) 81 mg BID PO Last administered on 02/19/19at 08:46; Admin Dose 81 MG; Start 02/19/19 at 09:00 Oxybutynin Chloride (Ditropan) 5 mg BID PO ; Start 02/19/19 at 13:00 Tamsulosin HCl (Flomax) 0.4 mg DAILY@2100 PO ; Start 02/19/19 at 21:00 Diagnostic Test (Pha) (Accu-Chek) 1 ea 02 XX ; Start 02/20/19 at 02:00 Insulin Aspart (Novolog Insulin Pen) NOVOLOG *MILD* ALGORITHM WITH MEALS BEDTIME SC ; Start 02/19/19 at 17:55 Miscellaneous Information 1 ea NOTE XX ; Start 02/19/19 at 13:00 Glucose (Glutose) 15 gm Q15M PRN PO DECREASED GLUCOSE; Start 02/19/19 at 13:00 Glucose (Glutose) 22.5 gm Q15M PRN PO DECREASED GLUCOSE; Start 02/19/19 at 13:00 Dextrose (D50w Syringe) 25 ml Q15M PRN IV DECREASED GLUCOSE; Start 02/19/19 at 13:00 Dextrose (D50w Syringe) 50 ml Q15M PRN IV DECREASED GLUCOSE; Start 02/19/19 at 13:00 Glucagon (Glucagen) 1 mg Q15M PRN IM DECREASED GLUCOSE; Start 02/19/19 at 13:00 Glucose (Glutose) 15 gm Q15M PRN BUCCAL DECREASED GLUCOSE; Start 02/19/19 at 13:00 VTE Prophylaxis Risk score (from Nsg)>0 risk: 7 SCD applied (from Ns): Yes Lines/Catheters IV Catheter Type: Huston in Place: No Assessment/Plan Hospital Course Subjective Other than residual leg pain, patient is not symptomatic, however has not urinated since Huston removal this morning Objective Physical exam General: Patient is laying in bed and answers questions appropriately Mentation: Patient is alert and oriented 4, Head: Normocephalic atraumatic Eyes: EOMI, pupils reactive to light Neck: Supple, nontender, midline Respiratory: Clear to auscultation bilaterally Cardiovascular: regular rate, no obvious murmurs Gastrointestinal: non-tender to palpation, bowel sounds heard. Neurological: Moves all extremities spontaneously Skin: No new skin lesions, surgical site bandaged, brace in place Assessment and plan Status post right total knee revision -Iatrogenic patellar tear, repaired -Orthopedic surgery recognitions appreciated BPH -Continue home meds GERD -Continue meds Questionable diabetes -A1c pending Questionable urinary retention -Continue home meds -Bladder scan every 6 hours, straight cath if residual over 300 cc. Disposition -Follow-up with orthopedic surgery recommendations,Follow-up on urine volume YUNG MAZARIEGOS Feb 19, 2019 13:46
[2019-02-19 14:06] VITALS: BP 112/66; PULSE 79; RESP 17
[2019-02-19] MEDS: OXYBUTYNIN 5 MG TAB PO SCH ×2 (15:55→22:04)
[2019-02-19] MEDS ORDERED: ONDANSETRON 4 MG INJ IV PRN (17:00)
[2019-02-19] MEDS ORDERED: INSULIN ASPART [NOVOLOG] 3 ML PEN SC SCH (17:55)
[2019-02-19 20:19] VITALS: BP 101/58; PULSE 75; RESP 19
[2019-02-19] MEDS: GABAPENTIN 300 MG CAP PO SCH (22:03)
[2019-02-19] MEDS: TAMSULOSIN (SR) 0.4 MG CAP PO SCH (22:03)
[2019-02-20 02:00] VITALS: BP 116/57; PULSE 69; RESP 18
[2019-02-20] MEDS ORDERED: ACCU-CHEK XX SCH (02:00)
[2019-02-20] MEDS: PANTOPRAZOLE (EC) 40 MG TAB PO SCH (06:28)
[2019-02-20] MEDS: ACETAMINOPHEN 500 MG TAB PO SCH ×3 (06:29→21:49)
[2019-02-20 08:18] VITALS: BP 107/58; PULSE 70; RESP 15
[2019-02-20] MEDS: OXYBUTYNIN 5 MG TAB PO SCH ×2 (09:39→20:35)
[2019-02-20] MEDS: ASPIRIN (EC) 81 MG TAB PO SCH ×2 (09:39→20:35)
[2019-02-20] MEDS: DOCUSATE SODIUM 100 MG CAP PO SCH ×2 (09:39→20:35)
[2019-02-20] MEDS ORDERED: MAGNESIUM OXIDE 400 MG TAB PO ONE (13:30)
[2019-02-20] MEDS ORDERED: POTASSIUM CHLORIDE 20 MEQ POWDER FOR ORAL SOLN PO ONE (13:30)
--- NOTE | 2019-02-20 13:32 | PN ---
Date/Time of Note Date/Time of Note DATE: 02/20/19 TIME: 13:30 Objective Vitals Vital Signs Date Temp Pulse Resp B/P (MAP) Pulse Ox O2 O2 Flow FiO2 Time Delivery Rate 02/20/19 98.0 70 15 107/58 99 Room Air 08:18 (74) 02/19/19 2.0 00:29 Intake and Output 02/19/19 02/19/19 02/20/19 1515:00 23:00 07:00 IntakeIntake Total 570 ml 900 ml 120 ml OutputOutput Total 370 ml 815 ml 270 ml BalanceBalance 200 ml 85 ml -150 ml Results Result Diagram: 02/20/19 0438 02/20/19 0438 Medications Medications Current Medications Ropivacaine/ Clonidine/ Epinephrine/ Ketorolac Tromethamine/ Sodium Chloride INTRA-OP INJ Last administered on 02/18/19at 09:33; Admin Dose 112.3 ML; Start 02/18/19 at 07:00; Stop 02/21/19 at 06:59 Miscellaneous Information (* Miscellaneous Pharmacy Order) DURAMORPH: 0.1 MG SPI... GIVEN NEURAXIAL XX ; Start 02/18/19 at 08:30 IV Flush (NS 3 ml) 3 ml PER PROTOCOL IV ; Start 02/18/19 at 17:00 Oxycodone HCl (Roxicodone) 15 mg Q4H PRN PO .PAIN; Start 02/18/19 at 17:00 Oxycodone HCl (Roxicodone) 10 mg Q4H PRN PO .PAIN; Start 02/18/19 at 17:00 Oxycodone HCl (Roxicodone) 5 mg Q4H PRN PO .PAIN; Start 02/18/19 at 17:00 Hydromorphone HCl (Dilaudid) 1 mg Q3H PRN IV .BREAKTHROUGH PAIN; Start 02/18/19 at 17:00 Acetaminophen (Tylenol Tab) 1,000 mg Q8 PO Last administered on 02/20/19at 06 :29; Admin Dose 1,000 MG; Start 02/18/19 at 22:00 Ondansetron HCl (Zofran Inj) 4 mg Q4H PRN IV NAUSEA/VOMITING; Start 02/19/19 at 17:00 Gabapentin (Neurontin) 300 mg QHS PO Last administered on 02/19/19 22:03; Admin Dose 300 MG; Start 02/18/19 at 21:00 Pantoprazole (Protonix Tab) 40 mg DAILY@06 PO Last administered on 02/20/19at 06:28; Admin Dose 40 MG; Start 02/20/19 at 06:00 Docusate Sodium (Colace) 200 mg BID PO Last administered on 02/20/19 09:39; Admin Dose 200 MG; Start 02/19/19 at 09:00; Stop 02/22/19 at 08:59 Simethicone (Mylicon) 80 mg TID PRN PO .GAS; Start 02/18/19 at 17:00 Senna/Docusate Sodium (Senokot-S) 2 tab BID PRN PO .CONSTIPATION; Start 02/18/19 at 17:00 Magnesium Hydroxide (Milk Of Mag) 30 ml HS PRN PO .CONSTIPATION; Start 02/18/19 at 17:00 Bisacodyl (Dulcolax Supp) 10 mg DAILY PRN [place] .CONSTIPATION; Start 02/18/19 at 17:00 Sodium Biphosphate/ Sodium Phosphate (Fleet Enema) 133 ml DAILY PRN [place] .CONSTIPATION; Start 02/18/19 at 17:00 Diphenhydramine HCl (Benadryl) 25 mg Q4H PRN IV .ITCHING; Start 02/18/19 at 17:00 Naloxone HCl (Narcan) 0.2 mg Q2M PRN IV .RESP RATE; Start 02/18/19 at 17:00 Bethanechol Chloride (Urecholine) 25 mg URINARY CATH D/C PRN PO UNABLE TO VOID Last administered on 02/19/19at 13:22; Admin Dose 25 MG; Start 02/18/19 at 17:00 Aspirin (Halfprin) 81 mg BID PO Last administered on 02/20/19 09:39; Admin Dose 81 MG; Start 02/19/19 at 09:00 Oxybutynin Chloride (Ditropan) 5 mg BID PO Last administered on 02/20/19at 09:39; Admin Dose 5 MG; Start 02/19/19 at 13:00 Tamsulosin HCl (Flomax) 0.4 mg DAILY@2100 PO Last administered on 02/19/19at 22:03; Admin Dose 0.4 MG; Start 02/19/19 at 21:00 Miscellaneous Information 1 ea NOTE XX ; Start 02/19/19 at 13:00 Glucose (Glutose) 15 gm Q15M PRN PO DECREASED GLUCOSE; Start 02/19/19 at 13:00 Glucose (Glutose) 22.5 gm Q15M PRN PO DECREASED GLUCOSE; Start 02/19/19 at 13:00 Dextrose (D50w Syringe) 25 ml Q15M PRN IV DECREASED GLUCOSE; Start 02/19/19 at 13:00 Dextrose (D50w Syringe) 50 ml Q15M PRN IV DECREASED GLUCOSE; Start 02/19/19 at 13:00 Glucagon (Glucagen) 1 mg Q15M PRN IM DECREASED GLUCOSE; Start 02/19/19 at 13:00 Glucose (Glutose) 15 gm Q15M PRN BUCCAL DECREASED GLUCOSE; Start 02/19/19 at 13:00 Magnesium Oxide (Mag-Ox 400) 400 mg ONCE ONCE PO ; Start 02/20/19 at 13:30; St op 02/20/19 at 13:31 Potassium Phosphate 20 meq/ Sodium Chloride 254.5455 ml @ 63.636 m... ONCE ONC E IVPB ; Start 02/20/19 at 15:00; Stop 02/20/19 at 18:59 Potassium Chloride (Potassium Chloride Pwd/Soln) 20 meq ONCE ONCE PO ; Start 02/20/19 at 13:30; Stop 02/20/19 at 13:31 VTE Prophylaxis Risk score (from Nsg)>0 risk: 6 SCD applied (from Ns): Yes Lines/Catheters IV Catheter Type: Huston in Place: No Assessment/Plan Hospital Course Subjective Other than residual leg pain, no acute complaints, Hemovac did drain some blood yesterday. Objective Physical exam General: Patient is laying in bed and answers questions appropriately Mentation: Patient is alert and oriented 4, Head: Normocephalic atraumatic Eyes: EOMI, pupils reactive to light Neck: Supple, nontender, midline Respiratory: Clear to auscultation bilaterally Cardiovascular: regular rate, no obvious murmurs Gastrointestinal: non-tender to palpation, bowel sounds heard. Neurological: Moves all extremities spontaneously Skin: No new skin lesions, surgical site bandaged, brace in place Assessment and plan Status post right total knee revision -Iatrogenic patellar tear, repaired -Orthopedic surgery recognitions appreciated Anemia -Secondary to acute blood loss anemia -Hemovac was draining bloody fluid overnight, orthopedic surgeon gave orders, less drainage now -H&H to ensure stability and will transfuse if needed. BPH -Continue home meds GERD -Continue meds Questionable diabetes -A1c noted, no diabetes Questionable urinary retention -Resolved without intervention Disposition -Follow-up with orthopedic surgery recommendations,Follow-up on urine volume YUNG MAZARIEGOS Feb 20, 2019 13:32
--- NOTE | 2019-02-20 14:53 | PN ---
Date/Time of Note Date/Time of Note DATE: 02/20/19 TIME: 14:49 Assessment/Plan Lines/Catheters IV Catheter Type (from Nrsg): Huston in Place (from Nrs): No Assessment/Plan Chief Complaint/Hosp Course POD#2 s/p complex revision right TKA. Intraoperative iatrogenic injury to the patella tendon status post primary repair. Patient is in a hinged knee brace. At this time he must keep his knee in extension and the hinged knee brace locked in full extension at all times. If hinged knee brace needs to be removed for hygiene or dressing changes his knee must be kept in extension. No active extension of the knee. Patient is weightbearing as tolerated with knee locked in extension. Postoperative rehab plan is as follows: Locked in full extension for 2 weeks followed by 4 weeks of 0 to 30 degrees range of motion. This will likely be followed with increasing range of motion by 15 to 20 degrees on a weekly basis. Intraoperative cultures are pending and will continue to be followed -Post op H&H. acute anemia secondary to intraoperative blood loss and Hemovac drain. We will continue to monitor. 1 g TXA ordered. Patient is not to be transfused developed calling me first. -PT/OT -Joints pain control protocol -DVT prophylaxis: SCD's, ASA 81 mg twice daily x6 weeks -Weight bearing status: as tolerated -Continue Hemovac drain. We will likely DC tomorrow morning -Diet: ADAT -Huston: Discontinued -Discharge planning consult Planned Discharge Date: 02/21/2019 Discharge to home with home health and home physical therapy Subjective 24 Hr Interval Summary Patient doing well No acute events overnight Pain is well controlled Exam/Review of Systems Vital Signs Vitals Vital Signs Date Temp Pulse Resp B/P (MAP) Pulse Ox O2 O2 Flow FiO2 Time Delivery Rate 02/20/19 98.0 70 15 107/58 99 Room Air 08:18 (74) 02/19/19 2.0 00:29 Intake and Output 02/19/19 02/19/19 02/20/19 1515:00 23:00 07:00 IntakeIntake Total 570 ml 900 ml 120 ml OutputOutput Total 370 ml 815 ml 270 ml BalanceBalance 200 ml 85 ml -150 ml Exam Free Text/Dictation Right lower extremity: Hinged knee brace locked in full extension is in place Hemovac drain is in place and to self suction Dressing: clean, dry, and intact, no erythema Sensation intact to light touch in a sural, saphenous, deep peroneal, superficial peroneal, medial and lateral plantar nerve distribution. Motor is intact, patient able to dorsiflex and plantarflex ankle and extend and flex great toe. Dorsalis Pedis pulse +2, Brisk capillary refill. Compartments are soft. Calves non-tender to palpation bilaterally. Results Result Diagram: 02/20/19 1431 02/20/19 0438 DULCE MARIA STROUD MD Feb 20, 2019 14:53
[2019-02-20] MEDS ORDERED: POTASSIUM PHOSPHATE 20 MEQ in SOD CHLORIDE 0.9% 250 ML IVPB ONE (15:00)
[2019-02-20] MEDS ORDERED: TRANEXAMIC ACID 1GM/100ML(PMX) 100 ML IVPB ONE (15:00)
[2019-02-20 15:14] VITALS: BP 100/53; PULSE 89; RESP 18
[2019-02-20 20:00] VITALS: BP 122/59; PULSE 75; RESP 18
[2019-02-20] MEDS: GABAPENTIN 300 MG CAP PO SCH (20:35)
[2019-02-20] MEDS: TAMSULOSIN (SR) 0.4 MG CAP PO SCH (21:49)
[2019-02-21 02:42] VITALS: BP 118/57; PULSE 72; RESP 18
[2019-02-21] MEDS: ACETAMINOPHEN 500 MG TAB PO SCH ×3 (05:52→14:31)
[2019-02-21] MEDS: PANTOPRAZOLE (EC) 40 MG TAB PO SCH (05:52)
[2019-02-21 07:15] VITALS: BP 121/62; PULSE 68; RESP 20
[2019-02-21] MEDS ORDERED: MAGNESIUM SULFATE 3 GM in DEXTROSE 5% 100 ML IVPB ONE (08:00)
--- NOTE | 2019-02-21 08:22 | PN ---
Date/Time of Note Date/Time of Note DATE: 02/21/19 TIME: 08:20 Assessment/Plan Lines/Catheters IV Catheter Type (from Nrsg): Peripheral IV Huston in Place (from Nrs): No Assessment/Plan Chief Complaint/Hosp Course POD#3 s/p complex revision right TKA. Intraoperative iatrogenic injury to the patella tendon status post primary repair. Patient is in a hinged knee brace. At this time he must keep his knee in extension and the hinged knee brace locked in full extension at all times. If hinged knee brace needs to be removed for hygiene or dressing changes his knee must be kept in extension. No active extension of the knee. Patient is weightbearing as tolerated with knee locked in extension. His pain is well controlled. He is doing well with physical therapy. No signs of infection. From orthopedic standpoint the patient is cleared to go home. Postoperative rehab plan is as follows: Locked in full extension for 2 weeks followed by 4 weeks of 0 to 30 degrees range of motion. This will likely be followed with increasing range of motion by 15 to 20 degrees on a weekly basis. Intraoperative cultures are pending and will continue to be followed -Post op H&H. Acute anemia secondary to operative blood loss. Stable -PT/OT -Joints pain control protocol -DVT prophylaxis: SCD's, ASA 81 mg twice daily x6 weeks -Weight bearing status: as tolerated -Continue Hemovac drain. DCed -Diet: ADAT -Huston: Discontinued -Discharge planning consult Planned Discharge Date: 02/21/2019 Discharge to home with home health and home physical therapy Subjective 24 Hr Interval Summary Patient doing well No acute events overnight Pain is well controlled Exam/Review of Systems Vital Signs Vitals Vital Signs Date Temp Pulse Resp B/P (MAP) Pulse Ox O2 O2 Flow FiO2 Time Delivery Rate 02/21/19 98.2 68 20 121/62 98 07:15 (81) 02/20/19 Room Air 15:14 02/19/19 2.0 00:29 Intake and Output 02/20/19 02/20/19 02/21/19 1515:00 23:00 07:00 IntakeIntake Total 620 ml 1094.54 ml OutputOutput Total 330 ml 1100 ml 830 ml BalanceBalance 290 ml -5.46 ml -830 ml Exam Free Text/Dictation Right lower extremity: Hinged knee brace in place and locked in extension negative pressure dressing intact, no leak Dressing: clean, dry, and intact, no erythema Sensation intact to light touch in a sural, saphenous, deep peroneal, superficial peroneal, medial and lateral plantar nerve distribution. Motor is intact, patient able to dorsiflex and plantarflex ankle and extend and flex great toe. Dorsalis Pedis pulse +2, Brisk capillary refill. Compartments are soft. Calves non-tender to palpation bilaterally. Results Result Diagram: 02/21/19 0435 02/21/19 0434 DULCE MARIA STROUD MD Feb 21, 2019 08:22
[2019-02-21] MEDS ORDERED: Acetaminophen PO (08:24)
--- NOTE | 2019-02-21 08:25 | DS ---
Date/Time of Note Date/Time of Note DATE: 02/21/19 TIME: 08:24 Discharge Summary Admission/Discharge Info Admit Date/Time Feb 18, 2019 at 05:26 Discharge Date/Time Patient Condition: Good Hospital Course POD#3 s/p complex revision right TKA. Intraoperative iatrogenic injury to the patella tendon status post primary repair. Patient is in a hinged knee brace. At this time he must keep his knee in extension and the hinged knee brace locked in full extension at all times. If hinged knee brace needs to be removed for hygiene or dressing changes his knee must be kept in extension. No active extension of the knee. Patient is weightbearing as tolerated with knee locked in extension. His pain is well controlled. He is doing well with physical therapy. No signs of infection. From orthopedic standpoint the patient is cleared to go home. Postoperative rehab plan is as follows: Locked in full extension for 2 weeks followed by 4 weeks of 0 to 30 degrees range of motion. This will likely be followed with increasing range of motion by 15 to 20 degrees on a weekly basis. Intraoperative cultures are pending and will continue to be followed -Post op H&H. Acute anemia secondary to operative blood loss. Stable -PT/OT -Joints pain control protocol -DVT prophylaxis: SCD's, ASA 81 mg twice daily x6 weeks -Weight bearing status: as tolerated -Continue Hemovac drain. DCed -Diet: ADAT -Huston: Discontinued -Discharge planning consult Planned Discharge Date: 02/21/2019 Discharge to home with home health and home physical therapy Home Meds Reported Medications Oxybutynin Chloride* (Ditropan*) 5 Mg Tab, 5 MG PO BID, TAB 02/18/19 Omeprazole* (Omeprazole*) 20 Mg Capsule.dr, 20 MG PO DAILY, #30 CAP 02/18/19 Tamsulosin Hcl* (Flomax*) 0.4 Mg Cap.er.24h, 0.4 MG PO DAILY, CAP 02/18/19 Metoclopramide* (Reglan*) 10 Mg Tablet, 10 MG PO AC MEALS, TAB 02/18/19 Gabapentin* (Gabapentin*) 300 Mg Capsule, 300 MG PO QHS, #60 CAP 02/18/19 Aspirin (Low Dose Aspirin) 81 Mg Tablet.dr, 81 MG PO BID, #30 TAB 02/18/19 Oxycodone Hcl* (IR) (Oxycodone Hcl*) 5 Mg Capsule, 5-10 MG PO Q6 PRN for PAIN, CAP 02/18/19 Primary Care Provider Not On Staff Doctor Time spent on discharge: < 30 minutes Pending Labs Laboratory Tests Test 02/20/19 14:31 02/21/19 04:34 02/21/19 04:35 Hemoglobin 7.7 7.4 g/dl (14.0-18.0) g/dl (14.0-18.0) Hematocrit 23.7 % (42.0-52.0) 22.7 % (42.0-52.0) Sodium Level 139 mmol/L (135-144) Potassium Level 3.0 mmol/L (3.5-5.1) Chloride Level 101 mmol/L (97-110) Carbon Dioxide 37 mmol/L (21-31) Level Anion Gap 1 (5-13) Blood Urea 14 mg/dl (7-20) Nitrogen Creatinine 0.80 mg/dl (0.61-1.24) Est Glomerular mL/min (>60) Filtrat Rate mL/min Glucose Level 127 mg/dl (70-220) Calcium Level 8.5 mg/dl (8.4-10.2) Phosphorus Level 2.9 mg/dl (2.5-4.9) Magnesium Level 1.4 mg/dl (1.7-2.5) White Blood Count 6.3 10^3/ul (4.8-10.8) Red Blood Count 2.52 10^6/ul (4.70-6.10 ) Mean Corpuscular 90.1 Volume fl (82.0-101.0) Mean Corpuscular 29.4 Hemoglobin pg (29.0-33.0) Mean Corpuscular 32.6 Hemoglobin Concent g/dl (32.0-37.0) Red Cell 13.5 % (11.5-14.5) Distribution Width Platelet Count 121 10^3/UL (140-415) Mean Platelet 11.6 fl (7.4-10.4) Volume Immature 0.300 Granulocytes % % (0.001-0.429) Neutrophils % 70.9 % (39.0-77.0) Lymphocytes % 19.7 % (15.0-51.0) Monocytes % 7.5 % (0.0-11.0) Eosinophils % 1.1 % (0.0-7.0) Basophils % 0.5 % (0.0-2.0) Nucleated Red Blood 0.0 Cells % /100WBC (0.0-0.0) Immature 0.020 Granulocytes # 10^3/ul (0.0-0.031 ) Neutrophils # 4.4 10^3/ul (1.6-7.5) Lymphocytes # 1.2 10^3/ul (0.8-2.9) Monocytes # 0.5 10^3/ul (0.3-0.9) Eosinophils # 0.1 10^3/ul (0.0-0.5) Basophils # 0.0 10^3/ul (0.0-0.1) Nucleated Red Blood 0.0 Cells # 10^3/ul (0.0-0.0) DULCE MARIA STROUD MD Feb 21, 2019 08:25
[2019-02-21] MEDS: POTASSIUM CHLORIDE 100 ML IVPB SCH ×2 (08:29→14:21)
[2019-02-21] MEDS: DOCUSATE SODIUM 100 MG CAP PO SCH (09:00)
[2019-02-21] MEDS: ASPIRIN (EC) 81 MG TAB PO SCH (09:29)
[2019-02-21] MEDS: OXYBUTYNIN 5 MG TAB PO SCH (09:29)
[2019-02-21] MEDS: oxyCODONE 5 MG TAB PO PRN ×2 (10:11→18:32)
--- NOTE | 2019-02-21 11:58 | PN ---
Date/Time of Note Date/Time of Note DATE: 02/21/19 TIME: 11:57 Objective Vitals Vital Signs Date Temp Pulse Resp B/P (MAP) Pulse Ox O2 O2 Flow FiO2 Time Delivery Rate 02/21/19 98.2 68 20 121/62 98 07:15 (81) 02/20/19 Room Air 15:14 02/19/19 2.0 00:29 Intake and Output 02/20/19 02/20/19 02/21/19 1515:00 23:00 07:00 IntakeIntake Total 620 ml 1094.54 ml OutputOutput Total 330 ml 1100 ml 830 ml BalanceBalance 290 ml -5.46 ml -830 ml Results Result Diagram: 02/21/19 0435 02/21/19 0434 Medications Medications Current Medications Miscellaneous Information (* Miscellaneous Pharmacy Order) DURAMORPH: 0.1 MG SPI... GIVEN NEURAXIAL XX ; Start 02/18/19 at 08:30 IV Flush (NS 3 ml) 3 ml PER PROTOCOL IV ; Start 02/18/19 at 17:00 Oxycodone HCl (Roxicodone) 15 mg Q4H PRN PO .PAIN; Start 02/18/19 at 17:00 Oxycodone HCl (Roxicodone) 10 mg Q4H PRN PO .PAIN Last administered on 02/21/19at 10:11; Admin Dose 10 MG; Start 02/18/19 at 17:00 Oxycodone HCl (Roxicodone) 5 mg Q4H PRN PO .PAIN; Start 02/18/19 at 17:00 Hydromorphone HCl (Dilaudid) 1 mg Q3H PRN IV .BREAKTHROUGH PAIN; Start 02/18/19 at 17:00 Acetaminophen (Tylenol Tab) 1,000 mg Q8 PO Last administered on 02/21/19at 05:52; Admin Dose 1,000 MG; Start 02/18/19 at 22:00 Ondansetron HCl (Zofran Inj) 4 mg Q4H PRN IV NAUSEA/VOMITING; Start 02/19/19 at 17:00 Gabapentin (Neurontin) 300 mg QHS PO Last administered on 02/20/19at 20:35; Admin Dose 300 MG; Start 02/18/19 at 21:00 Pantoprazole (Protonix Tab) 40 mg DAILY@06 PO Last administered on 02/21/19at 05:52; Admin Dose 40 MG; Start 02/20/19 at 06:00 Docusate Sodium (Colace) 200 mg BID PO Last administered on 02/20/19at 20:35; Admin Dose 200 MG; Start 02/19/19 at 09:00; Stop 02/22/19 at 08:59 Simethicone (Mylicon) 80 mg TID PRN PO .GAS; Start 02/18/19 at 17:00 Senna/Docusate Sodium (Senokot-S) 2 tab BID PRN PO .CONSTIPATION; Start 02/18/19 at 17:00 Magnesium Hydroxide (Milk Of Mag) 30 ml HS PRN PO .CONSTIPATION; Start 02/18/19 at 17:00 Bisacodyl (Dulcolax Supp) 10 mg DAILY PRN OK .CONSTIPATION; Start 02/18/19 at 17:00 Sodium Biphosphate/ Sodium Phosphate (Fleet Enema) 133 ml DAILY PRN OK .CONSTIPATION; Start 02/18/19 at 17:00 Diphenhydramine HCl (Benadryl) 25 mg Q4H PRN IV .ITCHING; Start 02/18/19 at 17:00 Naloxone HCl (Narcan) 0.2 mg Q2M PRN IV .RESP RATE; Start 02/18/19 at 17:00 Bethanechol Chloride (Urecholine) 25 mg URINARY CATH D/C PRN PO UNABLE TO VOID Last administered on 02/19/19at 13:22; Admin Dose 25 MG; Start 02/18/19 at 17:00 Aspirin (Halfprin) 81 mg BID PO Last administered on 02/21/19at 09:29; Admin Dose 81 MG; Start 02/19/19 at 09:00 Oxybutynin Chloride (Ditropan) 5 mg BID PO Last administered on 02/21/19at 09:29; Admin Dose 5 MG; Start 02/19/19 at 13:00 Tamsulosin HCl (Flomax) 0.4 mg DAILY@2100 PO Last administered on 02/20/19at 21:49; Admin Dose 0.4 MG; Start 02/19/19 at 21:00 Miscellaneous Information 1 ea NOTE XX ; Start 02/19/19 at 13:00 Glucose (Glutose) 15 gm Q15M PRN PO DECREASED GLUCOSE; Start 02/19/19 at 13:00 Glucose (Glutose) 22.5 gm Q15M PRN PO DECREASED GLUCOSE; Start 02/19/19 at 13:00 Dextrose (D50w Syringe) 25 ml Q15M PRN IV DECREASED GLUCOSE; Start 02/19/19 at 13:00 Dextrose (D50w Syringe) 50 ml Q15M PRN IV DECREASED GLUCOSE; Start 02/19/19 at 13:00 Glucagon (Glucagen) 1 mg Q15M PRN IM DECREASED GLUCOSE; Start 02/19/19 at 13:00 Glucose (Glutose) 15 gm Q15M PRN BUCCAL DECREASED GLUCOSE; Start 02/19/19 at 13:00 Potassium Chloride 100 ml @ 50 mls/hr Q2H IVPB Last administered on 02/21/19at 08:29; Admin Dose 50 MLS/HR; Start 02/21/19 at 08:00; Stop 02/21/19 at 11:59 VTE Prophylaxis Risk score (from Ns)>0 risk: 7 SCD applied (from Ns): Yes Lines/Catheters IV Catheter Type: H[place] in Place: No Assessment/Plan Hospital Course Subjective Other than residual leg pain, no acute complaints Objective Physical exam General: Patient is laying in bed and answers questions appropriately Mentation: Patient is alert and oriented 4, Head: Normocephalic atraumatic Eyes: EOMI, pupils reactive to light Neck: Supple, nontender, midline Respiratory: Clear to auscultation bilaterally Cardiovascular: regular rate, no obvious murmurs Gastrointestinal: non-tender to palpation, bowel sounds heard. Neurological: Moves all extremities spontaneously Skin: No new skin lesions, surgical site bandaged, brace in place Assessment and plan Status post right total knee revision -Iatrogenic patellar tear, repaired -Orthopedic surgery recognitions appreciated Anemia -Secondary to acute blood loss anemia -Hemoglobin has stabilized, orthopedic surgeon does not want transfusion at this time. BPH -Continue home meds GERD -Continue meds Questionable diabetes -A1c noted, no diabetes Questionable urinary retention -Resolved without intervention Disposition -Follow-up with orthopedic surgery recommendations, safe for discharge with home health physical therapy and to follow-up with Dr. Potts soon as possible, I recommend a repeat hemoglobin hematocrit within a few days. YUNG MAZARIEGOS Feb 21, 2019 11:58
[2019-02-21 15:29] VITALS: BP 124/66; PULSE 78; RESP 18
== END 2019-02-21 19:00 | disposition home or self-care (01) | DRG 467 ==
LOC: REC 05:26 → EDSTATUS 07:30 → MS1 18:18
PROVIDERS: ADMIT Orthopaedic Surgery Adult Reconstructive Orthopaedic Surgery; ATTEND Orthopaedic Surgery Adult Reconstructive Orthopaedic Surgery
PROC: 0SRC0J9 Replacement of Right Knee Joint with Synthetic Substitute, Cemented, Open Approach (ICD-10-PCS; 2019-02-18)
PROC: 0SPC0JZ Removal of Synthetic Substitute from Right Knee Joint, Open Approach (ICD-10-PCS; principal; 2019-02-18 07:30)
DX: T84.032A Mechanical loosening of internal right knee prosthetic joint, initial encounter (principal); D62 Acute posthemorrhagic anemia; E66.9 Obesity, unspecified; Z68.30 Body mass index [BMI] 30.0-30.9, adult; N40.0 Benign prostatic hyperplasia without lower urinary tract symptoms; K21.9 Gastro-esophageal reflux disease without esophagitis
CPT/HCPCS: 73560; 80048; 81001; 82962; 83036; 83735; 84100; 85014; 85018; 85025; 86850; 86900; 86901; 86920; 87070; 87075; 87081; 87086; 87102; 87116; 88300; 88305; 88331; 89060; 97116; 97161; 97165; 97530; 97535; C1713; C1776; J0131; J0171; J0690; J0735; J1100; J1815; J1885; J2250; J2274; J2405; J2710; J2795; J3010; J3370; J3475; J3480; J7050; J7120